=== PATIENT | male | born 2000 | race Caucasian/White ===

== ENCOUNTER 2024-07-08 16:20 | Emergency (ER) | payer SELFPAY ==
[~2024-07-08] VITALS: Ht 180.3 cm; Wt 79.5 kg
[2024-07-08 16:27] VITALS: TEMP 97.3
[2024-07-08] MEDS ORDERED: Ibuprofen 400 MG TAB PO ONE (18:15)
[2024-07-08] MEDS ORDERED: Acetaminophen 325 MG TAB PO ONE (18:15)
[2024-07-08 18:32] VITALS: BP 125/81; PULSE 93
== END 2024-07-08 18:32 | disposition home or self-care (01) ==
LOC: COL.ER 16:20
DX: S61.112A Laceration without foreign body of left thumb with damage to nail, initial encounter (principal); Z23 Encounter for immunization; W26.0XXA Contact with knife, initial encounter